=== PATIENT | female | born 1945 | race American Indian/Alaskan Native ===

== ENCOUNTER 2020-02-20 13:36 | Observation (INO) | payer MEDICARE ==
--- NOTE | 2020-02-20 14:43 | Event Note ---
ED Screening Note Date of service: 02/20/20 Time: 14:42 ED Screening Note: 74-year-old -[place] female presents with 1 day history of acute abdominal pain with coffee-ground emesis. Has a history of hypertension. This initial assessment/diagnostic orders/clinical plan/treatment(s) is/are subject to change based on patients health status, clinical progression and re- assessment by fellow clinical providers in the ED. Further treatment and workup at subsequent clinical providers discretion. Patient/guardian urged not to elope from the ED as their condition may be serious if not clinically assessed and managed. Initial orders include: This
[2020-02-20 15:53] LABS: Hematocrit 38.9 % (30.3-42.9); Hemoglobin 12.5 gm/dl (10.1-14.3); Lymphocytes # (Auto) 0.4 K/mm3 (1.2-5.4); Lymphocytes % (Auto) 8.6 % (13.4-35.0); Mean Corpuscular HGB Conc 32 % (30-34); Mean Corpuscular Volume 96 fl (79-97); Monocytes # (Auto) 0.1 K/mm3 (0.0-0.8); Monocytes % (Auto) 1.8 % (0.0-7.3); Platelet Count 359 K/mm3 (140-440); Red Blood Count 4.06 M/mm3 (3.65-5.03); Red Cell Distribution Width 13.5 % (13.2-15.2)
[2020-02-20 16:20] LABS: Alanine Aminotransferase 20 units/L (7-56); Albumin 4.4 g/dL (3.9-5); BUN/Creatinine Ratio 36; Blood Urea Nitrogen 18 mg/dL (7-17); Calcium 9.8 mg/dL (8.4-10.2); Hemolysis Index 2
[2020-02-20] MEDS ORDERED: PANTOPRAZOLE 40 MG INJ IV ONE (16:40)
[2020-02-20] MEDS ORDERED: SODIUM CHLORIDE 0.9% 1000 ML 1,000 ML IV ONE (16:41)
[2020-02-20] MEDS ORDERED: ONDANSETRON 4 MG/2 ML INJ IV ONE (16:41)
--- NOTE | 2020-02-20 16:48 | Emergency Department Report ---
HPI - General Chief Complaint: Abdominal Pain Time Seen by Provider: 02/20/20 14:41 - HPI HPI: This is a 74-year-old female who presents to the emergency department with a complaint of some midline abdominal burning pain that the patient equates with acid reflux that will sometimes radiate up towards her chest. Since last night the patient has been having nausea and vomiting and it has gotten to the point where the patient is unable to keep down any liquids or solids or take her medications. There is also been a few episodes of vomiting in which the patient says that she brought up some "xlsaoi-dnpsya-kpqgiwn stuff." Since this morning the patient is also been having some nonspecific dizziness/lightheadedness to where she feels slightly off balance. She denies any headache, vision change, chest pain, shortness of breath, numbness or paresthesias, or any other neurological deficits. She has a past medical history of hypertension, non-ins ulin-dependent diabetes. She denies any tobacco or illicit drug use. She follows with Dr. Katie Frausto. No recent travel or sick contacts at home. ED Past Medical Hx - Past Medical History Previous Medical History?: Yes Hx Hypertension: Yes Hx Diabetes: Yes - Surgical History Past Surgical History?: Yes Additional Surgical History: POLYPS - Social History Smoking Status: Never Smoker Substance Use Type: None - Medications Home Medications: Home Medications Medication Instructions Recorded Confirmed Last Taken Type AtorvaSTATin 1 tab PO HS 02/20/20 02/20/20 Unknown History Olmesartan/Hydrochlorothiazide 1 each PO DAILY 02/20/20 02/20/20 Unknown History [Olmesartan-Hctz 20-12.5 mg Tab] Verapamil ER [Calan Sr] 240 mg PO DAILY 02/20/20 02/20/20 Unknown History metFORMIN [Glucophage] 500 mg PO BID 02/20/20 02/20/20 Unknown History ED Review of Systems ROS: Stated complaint: DIZZY,VOMITING Other details as noted in HPI Comment: All other systems reviewed and negative Constitutional: denies: chills, fever Eyes: denies: eye pain, vision change ENT: denies: ear pain, throat pain Respiratory: denies: cough, shortness of breath Cardiovascular: denies: palpitations, edema Gastrointestinal: abdominal pain, nausea, vomiting Genitourinary: denies: dysuria, discharge Musculoskeletal: denies: back pain, arthralgia Skin: denies: rash, lesions Neurological: other (dizziness/lightheaded). denies: headache Physical Exam - Physical Exam Vital Signs: Vital Signs 02/20/20 14:40 Temperature 98.4 F Pulse Rate 72 Respiratory 18 Rate Blood Pressure 152/76 O2 Sat by Pulse 100 Oximetry Physical Exam: GENERAL: The patient is well-developed well-nourished. HENT: Normocephalic. Atraumatic. Patient has moist mucous membranes. EYES: Extraocular motions are intact. Pupils equal reactive to light bilaterally. No nystagmus. NECK: Supple. Trachea is midline. CHEST/LUNGS: Clear to auscultation. There is no respiratory distress noted. HEART/CARDIOVASCULAR: Regular. There is no tachycardia. ABDOMEN: Abdomen is soft, nontender. Patient has normal bowel sounds. There is no abdominal distention. SKIN: Skin is warm and dry. NEURO: The patient is awake, alert, and oriented. The patient is cooperative. The patient has no focal neurologic deficits. Normal speech. Cranial nerves II through XII grossly intact. MUSCULOSKELETAL: There is no tenderness or deformity. There is no limitation range of motion. There is no evidence of acute injury. ED Course Vital Signs 02/20/20 14:40 Temperature 98.4 F Pulse Rate 72 Respiratory 18 Rate Blood Pressure 152/76 O2 Sat by Pulse 100 Oximetry ED Medical Decision Making - Lab Data Result diagrams: 02/20/20 14:45 02/20/20 14:45 - EKG Data -: EKG Interpreted by Me EKG shows normal: sinus rhythm, axis, intervals, QRS complexes, ST-T waves Rate: normal (59 bpm) - EKG Data When compared to previous EKG there are: previous EKG unavailable Interpretation: normal EKG - Radiology Data Radiology results: report reviewed, image reviewed interpreted by me: Chest x-ray does not show any acute process. There are no pleural effusions, obvious pneumonia and there is no pneumothorax. Abdominal x-ray shows nonspecific nonobstructive bowel gas. CT HEAD WITHOUT CONTRAST INDICATION / CLINICAL INFORMATION: Pt complains of dizziness x 1 day. TECHNIQUE: All CT scans at this location are performed using CT dose reduction for ALARA by means of automated exposure control. COMPARISON: None available. FINDINGS: HEMORRHAGE: None. EXTRA-AXIAL SPACES: Normal in size and morphology for the patient's age. VENTRICULAR SYSTEM: Normal in size and morphology for the patient's age. CEREBRAL PARENCHYMA: No significant abnormality. No acute territorial infarct. MIDLINE SHIFT OR HERNIATION: None. CEREBELLUM / BRAINSTEM: No significant abnormality. ORBITS: Normal as visualized. SOFT TISSUES of HEAD: No significant abnormality. CALVARIUM: In cidental note is made of hyperostosis frontalis interna PARANASAL SINUSES / MASTOID AIR CELLS: Normal as visualized. ADDITIONAL FINDINGS: None. IMPRESSION: 1. No acute intracranial abnormality. - Medical Decision Making This patient presented with a complaint of some nausea and vomiting, and burning abdominal pain that started last night and worsened this morning that eventually caused some coffee-ground emesis. Also, since this morning, the patient says that she has been feeling dizzy/lightheaded and unsteady while walking. On examination she does not have any obvious focal, motor or sensory deficits and her cranial nerves are intact. Heart and lung sounds are normal to auscultation. An EKG was done that does not have any morphology consistent with ST elevation [place] or any significant dysrhythmia. Her labs have been unremarkable including CBC, metabolic panel, troponin but she does have a significant urinary tract infection. Patient received IV fluid resuscitation, Zofran, Protonix, and then a GI cocktail. She was given a dose of Macrobid for the urinary tract infection. She had an abdominal and chest x-ray that did not show any acute processes. Because of her complaint of dizziness/lightheadedness, she had a CT scan of the head without contrast that did not show any bleed, shift, mass, ischemia, or any other acute process. I attempted to ambulate this patient around the emergency department but the patient once again feels dizzy and appears unsteady. As this is a recent change for this patient, she will be admitted to the hospital for further evaluation and treatment and has been accepted for admission by the hospitalist, Dr. Norman. Critical Care Time: No Critical care attestation.: If time is entered above; I have spent that time in minutes in the direct care of this critically ill patient, excluding procedure time. ED Disposition Clinical Impression: Unsteady gait, Dizziness Nausea & vomiting Qualifiers: Vomiting type: unspecified Vomiting Intractability: unspecified Qualified Code(s): R11.2 - Nausea with vomiting, unspecified UTI (urinary tract infection) Qualifiers: Urinary tract infection type: acute cystitis Hematuria presence: without hematuria Qualified Code(s): N30.00 - Acute cystitis without hematuria Disposition: OP ADMIT IP TO THIS HOSP Is pt being admited?: Yes Condition: Fair Time of Disposition: 00:11
--- NOTE | 2020-02-20 17:26 | XRay Report ---
ABDOMEN 4 VIEW(S) INDICATION: Unspecified abdominal pain. COMPARISON: None available. FINDINGS: Bowel gas pattern: No significant abnormality. Free air: None seen. Stones: None seen. Chest: No acute findings. Additional Findings: Degenerative changes are seen throughout the spine. No additional significant fi ndings. IMPRESSION: 1. No acute findings. Signer Name: Kiran Nava MD Signed: 02/20/2020 5:22 PM Workstation Name: [id number]
[2020-02-20] MEDS ORDERED: ALUM-MAG HYDROXIDE-SIMETHICONE 200-200-20MG/5ML ORAL LIQD 30 ML PO ONE (17:50)
[2020-02-20] MEDS ORDERED: LIDOCAINE VISCOUS 2% 15 ML ORAL LIQD PO ONE (17:50)
[2020-02-20 19:58] LABS: Bacteria,Urine 1+ /HPF (Negative); Bilirubin,Urine NEG (Negative); Blood,Urine NEG (Negative); Color,Urine Yellow (Yellow); Mucus,Urine FEW /HPF; Protein,Urine <15 mg/dL mg/dL (Negative); Urobilinogen,Urine < 2.0 mg/dL (<2.0)
[2020-02-20] MEDS ORDERED: NITROFURANTOIN MONOHYD/M-CRYST 100 MG CAP PO ONE (21:06)
--- NOTE | 2020-02-20 23:34 | Cat Scan Report ---
CT HEAD WITHOUT CONTRAST INDICATION / CLINICAL INFORMATION: Pt complains of dizziness x 1 day. TECHNIQUE: All CT scans at this location are performed using CT dose reduction for ALARA by means of automated e xposure control. COMPARISON: None available. FINDINGS: HEMORRHAGE: None. EXTRA-AXIAL SPACES: Normal in size and morphology for the patient's age. VENTRICULAR SYSTEM: Normal in size and morphology for the patient's age. CEREBRAL PARENCHYMA: No significant abnormality. No acute territorial infarct. MIDLINE SHIFT OR HERNIATION: None. CEREBELLUM / BRAINSTEM: No significant abnormality. ORBITS: Normal as visualized. SOFT TISSUES of HEAD: No significant abnormality. CALVARIUM: Incidental note is made of hyperostosis frontalis interna PARANASAL SINUSES / MASTOID AIR CELLS: Normal as visualized. ADDITIONAL FINDINGS: None. IMPRESSION: 1. No acute intracranial abnormality. Signer Name: Dae Martins MD Signed: 02/20/2020 11:30 PM Workstation Name: [id number]
[2020-02-21] MEDS ORDERED: ONDANSETRON 4 MG/2 ML INJ IV PRN ×2 (00:38)
[2020-02-21] MEDS ORDERED: MAGNESIUM HYDROXIDE (MOM) ORAL LIQD UDC PO PRN ×2 (00:38)
[2020-02-21] MEDS ORDERED: METOCLOPRAMIDE 10 MG TAB PO PRN (00:38)
[2020-02-21] MEDS ORDERED: DEXTROSE 50% IN WATER (25GM) 50 ML SYRINGE IV PRN (00:38)
[2020-02-21] MEDS ORDERED: PROMETHAZINE 25 MG RECT SUPP PR PRN (00:38)
[2020-02-21] MEDS ORDERED: ACETAMINOPHEN 325 MG TAB PO PRN ×2 (00:38)
--- NOTE | 2020-02-21 00:50 | History and Physical Report ---
History of Present Illness Date of examination: 02/21/20 Date of admission: 02/21/20 00:18 Chief complaint: Nausea and vomiting History of present illness: 84-year-old female who presents to the emergency room today with nausea and vomiting with associated abdominal pain. Abdominal pain is said to be in the epigastric region and burning in nature. She also indicates that she had what looked like coffee ground emesis. This has been ongoing since last night how ever earlier this morning she was feeling unsteady on her legs and feeling dizzy. She denies any fall. She denies any loss of consciousness. Patient denies any fever or chills, no chest pain or shortness of breath, denies any headache or blurry vision. She denies any sick contacts and no recent travel. She denies contact with anyone with COVID-19. Work-up in the emergency room did not reveal any significant findings on the CT scan of the head however patient had a urinary tract infection on the urinalysis. She had a dose of Macrobid in the emergency room. Past History Past Medical History: diabetes, hypertension, hyperlipidemia Past Surgical History: No surgical history Social history: no significant social history Family history: no significant family history Medications and Allergies Allergies Allergy/AdvReac Type Severity Reaction Status Date / Time No Known Allergies Allergy Unverified 02/13/14 08:33 Home Medications Medication Instructions Recorded Confirmed Last Taken Type AtorvaSTATin 1 tab PO HS 02/20/20 02/20/20 Unknown History Olmesartan/Hydrochlorothiazide 1 each PO DAILY 02/20/20 02/20/20 Unknown History [Olmesartan-Hctz 20-12.5 mg Tab] Verapamil ER [Calan Sr] 240 mg PO DAILY 02/20/20 02/20/20 Unknown History metFORMIN [Glucophage] 500 mg PO BID 02/20/20 02/20/20 Unknown History Review of Systems Constitutional: no fever, no chills Ears, nose, mouth and throat: no nasal congestion, no sore throat Cardiovascular: no chest pain, no palpitations, no syncope Respiratory: no cough, no shortness of breath Gastrointestinal: nausea, vomiting, coffee ground emesis, no abdominal pain, no diarrhea, no BRBPR Genitourinary Female: no flank pain, no dysuria, no hematuria Musculoskeletal: no neck pain, no low back pain Integumentary: no rash, no pruritis Neurological: gait dysfunction, no headaches, no confusion Psychiatric: no anxiety, no depression Exam - Constitutional Vitals: Temp Pulse Resp BP Pulse Ox 98.3 F 72 18 132/65 97 02/20/20 21:02 02/20/20 21:02 02/20/20 21:02 02/20/20 22:00 02/20/20 22:00 General appearance: Present: no acute distress, well-nourished - EENT Eyes: Present: PERRL, EOM intact. Absent: scleral icterus ENT: hearing intact, clear oral mucosa, dentition normal - Neck Neck: Present: supple, normal ROM - Respiratory Respiratory effort: normal Respiratory: bilateral: CTA - Cardiovascular Rhythm: regular Heart Sounds: Present: S1 & S2. Absent: gallop, systolic murmur, diastolic murmur, rub - Extremities Extremities: no ischemia, pulses intact, pulses symmetrical, No edema, Full ROM Peripheral Pulses: within normal limits - Abdominal General gastrointestinal: Present: soft, non-tender, non-distended, normal bowel sounds - Integumentary Integumentary: Present: clear, warm, dry. Absent: jaundice, rash - Musculoskeletal Musculoskeletal: strength equal bilaterally - Psychiatric Psychiatric: appropriate mood/affect, intact judgment & insight, memory intact, cooperative - Neurologic Neurologic: CNII-XII intact, no focal deficits, moves all extremities HEART Score - HEART Score Troponin: Troponin T < 0.010 ng/mL (0.00-0.029) 02/20/20 14:45 Results - Labs CBC & Chem 7: 02/20/20 14:45 02/20/20 14:45 Labs: Abnormal lab results 02/20/20 02/20/20 02/20/20 Range/Units 14:45 14:45 19:00 Lymph % (Auto) 8.6 L (13.4-35.0) % Lymph # 0.4 L (1.2-5.4) K/mm3 Seg Neutrophils % 88.6 H (40.0-70.0) % Sodium 136 L (137-145) mmol/L Chloride 96.3 L (98-107) mmol/L Carbon Dioxide 21 L (22-30) mmol/L BUN 18 H (7-17) mg/dL Creatinine 0.5 L (0.7-1.2) mg/dL Glucose 246 H (65-100) mg/dL Lipase 10 L (13-60) units/L Urine WBC (Auto) 105.0 H (0.0-6.0) /HPF Assessment and Plan - Patient Problems (1) Nausea & vomiting Current Visit: Yes Status: Acute Qualifiers: Vomiting type: unspecified Vomiting Intractability: unspecified Qualified Code(s): R11.2 - Nausea with vomiting, unspecified Plan to address problem: Patient has been placed on IV Zofran as needed. Patient also has associated gastritis/GERD. She has been placed on IV Protonix. (2) UTI (urinary tract infection) Current Visit: Yes Status: Acute Qualifiers: Urinary tract infection type: acute cystitis Hematuria presence: without hematuria Qualified Code(s): N30.00 - Acute cystitis without hematuria Plan to address problem: Patient placed on empiric IV antibiotics. We await urine culture result. (3) Unsteady gait Current Visit: Yes Status: Acute Plan to address problem: Etiology is unclear however patient will be scheduled for MRI of the brain and also carotid Doppler. We will request neurology evaluation and recommendation. (4) Diabetes mellitus Current Visit: Yes Status: Acute Plan to address problem: We will monitor Accu-Cheks. (5) DVT prophylaxis Current Visit: Yes Status: Acute Plan to address problem: Patient placed on sequential compression device. (6) Full code status Current Visit: Yes Status: Acute
[2020-02-21] MEDS: SODIUM CHLORIDE 0.9% 1000 ML 1,000 ML IV SCH ×2 (01:20→18:11)
[2020-02-21] MEDS ORDERED: SODIUM CHLORIDE 0.9% 1000 ML 1,000 ML ONE (01:22)
[2020-02-21 05:38] LABS: Free T4 (Free Thyroxine) 0.89 ng/dL (0.76-1.46)
[2020-02-21] MEDS: INSULIN LISPRO 100 UNIT/ML SUB-Q SCH ×4 (07:45→22:35)
[2020-02-21] MEDS: hydroCHLOROthiazide 12.5 MG CAP PO SCH (09:11)
[2020-02-21] MEDS: LOSARTAN 50 MG TAB PO SCH (09:11)
[2020-02-21] MEDS: ASPIRIN 325 MG TAB PO SCH (09:11)
[2020-02-21] MEDS: VERAPAMIL ER 240 MG TAB PO SCH (09:11)
[2020-02-21] MEDS: cefTRIAXone/NS 1 GM/50 ML 1 GM/50 ML BAG IV SCH (09:11)
[2020-02-21] MEDS: PANTOPRAZOLE 40 MG INJ IV SCH ×2 (09:12→22:37)
[2020-02-21] MEDS ORDERED: NON-FORMULARY EACH (Olmesartan/Hydrochlorothiazide [Olmesartan-Hctz 20-12.5 Mg Tab] 1 EACH PO SCH (10:00)
--- NOTE | 2020-02-21 12:41 | Vascular Lab Report ---
BILATERAL CAROTID DOPPLER ULTRASOUND INDICATION : stroke TECHNIQUE: Grayscale and color Doppler imaging performed through the neck. COMPARISON: None FINDINGS: Right: There is minimal partially calcified plaque in the carotid bulb. Peak systolic velocity in t he CCA is 93 cm/s with end-diastolic velocity of 21 cm/s. Peak systolic velocity in the proximal ICA is 81 cm/s with end-diastolic velocity of 32 cm/s. ICA to CCA ratio is less than 2. There is antegrad e flow in the ECA and the vertebral artery. Left: There is no significant atherosclerotic disease. Peak systolic velocity in the CCA is 80 cm/s w ith end-diastolic velocity of 18 cm/s. Peak systolic velocity in the proximal ICA is 73 cm/s with end -diastolic velocity of 16 cm/s. ICA to CCA ratio is less than 2. There is antegrade flow in the ECA and the vertebral artery. IMPRESSION: No hemodynamically significant stenosis by NASCET criteria. Doppler velocities indicate l ess than 50% luminal narrowing bilaterally. Signer Name: Kishore Costello Jr, MD Signed: 02/21/2020 12:37 PM Workstation Name: [id number]
--- NOTE | 2020-02-21 14:15 | Consultation ---
History of Present Illness Consult date: 02/21/20 Reason for Consult: Unsteady gait Chief complaint: Unsteady gait History of present illness: Patient is a 74 y/o woman w/ a h/o HTN, DM, HLD. She had not been feeling well at home over the past 2 days, as she was experiencing nausea, vomiting, abdominal pain, and coffee-ground emesis. Yesterday, when trying to walk, she noted that she felt somewhat unsteady, dizzy, and lightheaded. She came to [facility] for further evaluation, and was found to have a UTI. Patient states that her gait has returned to normal today, and she feels better overall. Past History Past Medical History: diabetes, hypertension, hyperlipidemia Past Surgical History: No surgical history Social history: no significant social history Family history: no significant family history Medications and Allergies Allergies Allergy/AdvReac Type Severity Reaction Status Date / Time No Known Allergies Allergy Unverified 02/13/14 08:33 Home Medications Medication Instructions Recorded Confirmed Last Taken Type AtorvaSTATin 1 tab PO HS 02/20/20 02/20/20 Unknown History Olmesartan/Hydrochlorothiazide 1 each PO DAILY 02/20/20 02/20/20 Unknown History [Olmesartan-Hctz 20-12.5 mg Tab] Verapamil ER [Calan Sr] 240 mg PO DAILY 02/20/20 02/20/20 Unknown History metFORMIN [Glucophage] 500 mg PO BID 02/20/20 02/20/20 Unknown History Active Meds: Active Medications Acetaminophen (Tylenol) 650 mg PO Q4H PRN PRN Reason: Pain, Mild (1-3) Aspirin (Aspirin) 325 mg PO QDAY [facility] Last Admin: 02/21/20 09:11 Dose: 325 mg Documented by: Atorvastatin Calcium (Atorvastatin) 10 mg PO [facility] Bisacodyl (Dulcolax) 10 mg [place] QDAY PRN PRN Reason: Constipation Dextrose (D50w (25gm) Syringe) 0 ml IV Q30MIN PRN; Protocol PRN Reason: Hypoglycemia Hydrochlorothiazide (Hctz) 12.5 mg PO QDAY [facility] Last Admin: 02/21/20 09:11 Dose: 12.5 mg Documented by: Sodium Chloride (Nacl 0.9% 1000 Ml) 1,000 mls @ 75 mls/hr IV DIRECT [facility] Last Admin: 02/21/20 01:20 Dose: 75 mls/hr Documented by: Ceftriaxone Sodium (Rocephin/Ns 1 Gm/50 Ml) 1 gm in 50 mls @ 100 mls/hr IV Q24HR [facility]; Protocol Last Admin: 02/21/20 09:11 Dose: 100 mls/hr Documented by: Insulin Human Lispro (Humalog) 0 unit SUB-Q ACHS [facility]; Protocol Last Admin: 02/21/20 12:30 Dose: Not Given Documented by: Losartan Potassium (Cozaar) 50 mg PO QDAY [facility] Last Admin: 02/21/20 09:11 Dose: 50 mg Documented by: Magnesium Hydroxide (Milk Of Magnesia) 30 ml PO Q4H PRN PRN Reason: Constipation Metoclopramide HCl (Reglan) 10 mg PO Q6H PRN PRN Reason: Nausea And Vomiting Ondansetron HCl (Zofran) 4 mg IV Q8H PRN PRN Reason: Nausea And Vomiting Last Admin: 02/21/20 13:17 Dose: 4 mg Documented by: Pantoprazole Sodium (Protonix) 40 mg IV BID [facility] Last Admin: 02/21/20 09:12 Dose: 40 mg Documented by: Promethazine HCl (Phenergan) 25 mg [place] Q6H PRN PRN Reason: Nausea And Vomiting Sodium Chloride (Sodium Chloride Flush Syringe 10 Ml) 10 ml IV BID [facility] Last Admin: 02/21/20 09:12 Dose: 10 ml Documented by: Sodium Chloride (Sodium Chloride Flush Syringe 10 Ml) 10 ml IV PRN PRN PRN Reason: LINE FLUSH Verapamil HCl (Calan Sr) 240 mg PO DAILY [facility] Last Admin: 02/21/20 09:11 Dose: 240 mg Documented by: Review of Systems All systems: negative Gastrointestinal: nausea, vomiting (coffee ground emesis) Neurological: other (unsteady gait- now resolved, lightheadedness, dizziness) Physical Examination - Vital Signs Vital Signs: Vital Signs Temp Pulse Resp BP Pulse Ox 98.4 F 72 18 152/76 100 02/20/20 14:40 02/20/20 14:40 02/20/20 14:40 02/20/20 14:40 02/20/20 14:40 - Physical Exam Narrative exam: Patient is alert, awake, oriented x4, follows complex commands. No dysarthria or aphasia noted. PERRL, EOMI, VFF, tongue midline, bilaterally intact to LT, no facial weakness noted. 5/5 strength in all extremities. Bilaterally intact light touch. Bilaterally intact to FTN and HTS. - Constitutional General appearance: comfortable Results - Laboratory Findings CBC and BMP: 02/20/20 14:45 02/20/20 14:45 Abnormal Lab Findings: Abnormal Labs 02/20/20 02/20/20 02/20/20 14:45 14:45 19:00 Lymph % (Auto) 8.6 L Lymph # 0.4 L Seg Neutrophils % 88.6 H Sodium 136 L Chloride 96.3 L Carbon Dioxide 21 L BUN 18 H Creatinine 0.5 L Glucose 246 H POC Glucose Lipase 10 L Urine WBC (Auto) 105.0 H 02/21/20 02/21/20 07:52 11:56 Lymph % (Auto) Lymph # Seg Neutrophils % Sodium Chloride Carbon Dioxide BUN Creatinine Glucose POC Glucose 144 H 152 H Lipase Urine WBC (Auto) Assessment and Plan Patient is a 74 y/o woman w/ a h/o HTN, DM, HLD, who p/w nausea/vomiting, coffee ground emesis, dizziness/lightheadedness, and unsteady gait. Her symptoms have since improved. According to the patient's clinical findings, it is likely that her symptoms yesterday of unsteady gait, dizziness/lightheadedness were secondary to UTI, as they have already resolved now that treatment for UTI has been initiated. Plan: 1. Unsteady gait: - Likely secondary to UTI. - Has now resolved. Continue to treat UTI per primary team - MRI brain: No acute abnormalities. Awaiting final report from radiology. - CUS: no significant stenosis. - Echo: EF 55-60%, LA normal size, bubble study negative. - CT head: no acute abnormalities. - As patient's symptoms have resolved, no further neurologic investigations indicated at this time. - Recommend PT eval for gait stability. - Will sign off, as neurologic investigations are complete, and treatment plan is in place. Please call with any questions. Thank you for allowing me to take part in the care of this patient. Olvin Ram MD Neurology This clinical encounter was provided via live telemedicine platform. Consultative service was provided for neurology to support local providers. The Acute Teleneurology team should be contacted with any neurologic worsening or clinical changes, new test results, or new patient history that is reported to or discovered by the local team following completion of the teleneurology consultation, specifically that which has the potential to impact the consultative recommendations. Patient/Family was informed the Neurology Consult would happen via TeleHealth consult by way of interactive audio and video telecommunications and consented to receiving care in this manner. Due to the potential for life-threatening deterioration due to underlying neurologic illness, and limited resources available for patient care, telemedicine was used as means of patient care. Telemedicine consultation is limited in the extent of physical exam that can be virtually provided. Time spent evaluating patient includes time for face to face visit via telemedicine, review of medical records, imaging studies and discussion of findings with providers, the patient and/or family.
--- NOTE | 2020-02-21 20:18 | Progress Note ---
Assessment and Plan atient Problems (1) Nausea & vomiting Current Visit: Yes Status: Acute Qualifiers: Vomiting type: unspecified Vomiting Intractability: unspecified Qualified Code(s): R11.2 - Nausea with vomiting, unspecified Plan to address problem: Patient has been placed on IV Zofran as needed. Patient also has associated gastritis/GERD. She has been placed on IV Protonix. (2) UTI (urinary tract infection) Current Visit: Yes Status: Acute Qualifiers: Urinary tract infection type: acute cystitis Hematuria presence: without hematuria Qualified Code(s): N30.00 - Acute cystitis without hematuria Plan to address problem: Patient placed on empiric IV antibiotics. We await urine culture result. (3) Unsteady gait Current Visit: Yes Status: Acute Plan to address problem: Etiology is unclear however patient will be scheduled for MRI of the brain and also carotid Doppler. We will request neurology evaluation and recommendation. (4) Diabetes mellitus Current Visit: Yes Status: Acute Plan to address problem: We will monitor Accu-Cheks. (5) DVT prophylaxis Current Visit: Yes Status: Acute Plan to address problem: Patient placed on sequential compression device. (6) Full code status Current Visit: Yes Status: Acute Subjective Date of service: 02/21/20 Objective - Constitutional Vitals: Vital Signs - 12hr 02/21/20 02/21/20 02/21/20 11:41 13:00 15:33 Temperature 98.3 F 98.0 F Pulse Rate 91 H 91 H 84 Respiratory 18 18 Rate Blood Pressure 141/75 123/71 O2 Sat by Pulse 97 97 Oximetry 02/21/20 19:22 Temperature 97.7 F Pulse Rate 54 L Respiratory 18 Rate Blood Pressure 118/60 O2 Sat by Pulse 98 Oximetry - Labs CBC & Chem 7: 02/22/20 03:55 02/22/20 03:55 Labs: Abnormal lab results 02/21/20 02/21/20 02/21/20 Range/Units 07:52 11:56 16:29 POC Glucose 144 H 152 H 135 H (70-105) HEART Score - HEART Score Troponin: Troponin T < 0.010 ng/mL (0.00-0.029) 02/20/20 14:45
[2020-02-22 04:52] LABS: Basophils % (Auto) 0.5 % (0.0-1.8); Eosinophils # (Auto) 0.1 K/mm3 (0.0-0.4); Eosinophils % (Auto) 1.5 % (0.0-4.3); Hemoglobin 10.9 gm/dl (10.1-14.3); Lymphocytes # (Auto) 1.9 K/mm3 (1.2-5.4); Lymphocytes % (Auto) 45.6 % (13.4-35.0); Mean Corpuscular HGB Conc 33 % (30-34); Mean Corpuscular Volume 97 fl (79-97); Monocytes # (Auto) 0.3 K/mm3 (0.0-0.8); Monocytes % (Auto) 6.5 % (0.0-7.3); Platelet Count 294 K/mm3 (140-440); Red Blood Count 3.41 M/mm3 (3.65-5.03); Red Cell Distribution Width 13.7 % (13.2-15.2)
[2020-02-22 04:57] LABS: BUN/Creatinine Ratio 26; Blood Urea Nitrogen 21 mg/dL (7-17); Calcium 8.8 mg/dL (8.4-10.2); Hemolysis Index 4; LDL Cholesterol,Direct 69 mg/dL (50-130)
[2020-02-22 05:02] LABS: INR 1.08 (0.87-1.13)
[2020-02-22 05:09] LABS: Chol/HDL Ratio 2.41 %; HDL Cholesterol 51 mg/dL (40-59)
[2020-02-22] MEDS: SODIUM CHLORIDE 0.9% 1000 ML 1,000 ML IV SCH (06:47)
[2020-02-22] MEDS: INSULIN LISPRO 100 UNIT/ML SUB-Q SCH ×2 (07:57→12:50)
--- NOTE | 2020-02-22 08:17 | Magnetic Resonance Report ---
MR brain wo con INDICATION / CLINICAL INFORMATION: 74 years Female; MAIN. TECHNIQUE: Multiplanar, multisequence MR images of the brain were obtained. COMPARISON: None available. FINDINGS: BRAIN / INTRACRANIAL CONTENTS: On the FLAIR sequences, there are scattered a hypertensive foci involv ing the cerebral white matter most consistent with microvascular angiopathy. The diffusion imaging re veals no evidence of acute infarction. There is mild cerebral atrophy. The ventricular system is correspondingly appropriate in size and con figuration. No extra-axial fluid collections or significant mass effect is identified. 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 CRANIOCERVICAL JUNCTION: No significant abnormality. VASCULAR FLOW-VOIDS: No significant abnormality. ORBITS: No significant abnormality of visualized orbits. SINUSES / MASTOIDS: No significant abnormality in the visualized paranasal sinuses or mastoid air sid ls. ADDITIONAL FINDINGS: None. IMPRESSION: 1. There is mild microvascular angiopathy without evidence of acute infarction. Signer Name: Willie Thorpe MD Signed: 02/22/2020 8:13 AM Workstation Name: [id number]
[2020-02-22 10:20] VITALS: BP 115/70
[2020-02-22] MEDS: cefTRIAXone/NS 1 GM/50 ML 1 GM/50 ML BAG IV SCH (10:27)
[2020-02-22] MEDS: hydroCHLOROthiazide 12.5 MG CAP PO SCH (10:27)
[2020-02-22] MEDS: PANTOPRAZOLE 40 MG INJ IV SCH (10:27)
[2020-02-22] MEDS: LOSARTAN 50 MG TAB PO SCH (10:27)
[2020-02-22] MEDS: ASPIRIN 325 MG TAB PO SCH (10:27)
[2020-02-22] MEDS: VERAPAMIL ER 240 MG TAB PO SCH (10:27)
--- NOTE | 2020-02-22 12:30 | Event Note ---
Date: 02/21/20 Patient seen and examined States nausea vomiting and lightheadedness much improved Getting antibiotics for UTI MRI of the brain official report is pending Neuro eval pending We will continue to monitor Possible DC home with home health if MRI of the brain is negative and cleared by neuro
--- NOTE | 2020-02-22 14:50 | Discharge Summary ---
Providers - Providers Date of Admission: 02/21/20 00:18 Date of discharge: 02/22/20 Attending physician: MALICK KRAMER 02/21/20 00:38 Consult to Dietitian/Nutrition [CONS] Routine Physician Instructions: Reason For Exam: Reason for Consult: Nutrition Recommendations Reason for Consult: Diet education Occupational Therapy Evaluate and Treat [CONS] Routine Comment: Reason For Exam: Neuro deficits Physical Therapy Evaluation and Treat [CONS] Routine Comment: Reason For Exam: Neuro deficits 02/21/20 06:28 Consult to Physician [CONS] Routine Comment: Consulting Provider: HERNAN WHALEN Physician Instructions: Reason For Exam: Unsteady gait Primary care physician: SCALE INSTALLER Hospitalization Condition: Fair Hospital course: 84-year-old female who presented to the emergency room with nausea and vomiting with associated abdominal pain. Work-up in the emergency room did not reveal any significant findings on the CT scan of the head however patient had a urinary tract infection on the urinalysis. MRI brain showed no abnormalities, carotid Doppler showed no significant stenosis, 2D echo showed EF 55 to 60%. Patient was further evaluated by neurology and recommended medical management for UTI. Patient was placed on IV fluid and antibiotic. His symptom improved. Patient was further evaluated by physical therapy and recommended home health PT. Patient was then discharged home in stable condition with outpatient follow-up. Radiological data: Chest/abdomen x-ray Head CT, brain MRI Carotid Doppler 2D echocardiogram Discharge diagnosis: Nausea and vomiting, likely due to UTI and underlying infection UTI without sepsis Mild hyponatremia, improved with IV fluid Unsteady gait, likely due to UTI Diabetes mellitus type 2 Hypertension Hyperlipidemia Physical exam: General appearance: Present: no acute distress, well-nourished - EENT Eyes: Present: PERRL, EOM intact. Absent: scleral icterus ENT: hearing intact, clear oral mucosa, dentition normal - Neck Neck: Present: supple, normal ROM - Respiratory Respiratory effort: normal Respiratory: bilateral: CTA - Cardiovascular Rhythm: regular Heart Sounds: Present: S1 & S2. Absent: gallop, systolic murmur, diastolic murmur, rub - Extremities Extremities: no ischemia, pulses intact, pulses symmetrical, No edema, Full ROM Peripheral Pulses: within normal limits - Abdominal General gastrointestinal: Present: soft, non-tender, non-distended, normal bowel sounds - Integumentary Integumentary: Present: clear, warm, dry. Absent: jaundice, rash - Musculoskeletal Musculoskeletal: strength equal bilaterally - Psychiatric Psychiatric: appropriate mood/affect, intact judgment & insight, memory intact, cooperative - Neurologic Neurologic: CNII-XII intact, no focal deficits, moves all extremities Disposition: DC-01 TO HOME OR SELFCARE Time spent for discharge: 34 minutes Core Measure Documentation - Palliative Care Palliative Care/ Comfort Measures: Not Applicable - Core Measures Any of the following diagnoses?: none Exam - Constitutional Vitals: Temp Pulse Resp BP Pulse Ox 98.0 F 65 18 115/70 99 02/22/20 07:23 02/22/20 11:01 02/22/20 07:23 02/22/20 07:23 02/22/20 03:51 Plan Activity: advance as tolerated Weight Bearing Status: Weight Bear as Tolerated Diet: low fat, low salt, diabetic Follow up with: PRIMARY CARE,MD [Primary Care Provider] - 7 Days Prescriptions: levoFLOXacin [Levaquin TAB] 500 mg PO QDAY #3 tablet
== END 2020-02-22 16:37 | disposition home or self-care (01) ==
LOC: ED 13:36 → 4A 02-21 00:18
PROVIDERS: ADMIT Internal Medicine Geriatric Medicine; ATTEND Internal Medicine
DX: R11.2 Nausea with vomiting, unspecified (principal); R42 Dizziness and giddiness; N30.00 Acute cystitis without hematuria; R26.9 Unspecified abnormalities of gait and mobility; E11.9 Type 2 diabetes mellitus without complications; I10 Essential (primary) hypertension; E78.5 Hyperlipidemia, unspecified; Z79.84 Long term (current) use of oral hypoglycemic drugs; Z79.899 Other long term (current) drug therapy
CPT/HCPCS: 36415; 70450; 70551; 74022; 80048; 80053; 80061; 81001; 82962; 83690; 84439; 84443; 84484; 85025; 85610; 86850; 86900; 86901; 93005; 93306; 93880; 96361; 96365; 96366; 96374; 96375; 96376; 97110; 97116; 97162; 97165; 99285; A9270; C9113; G0378; J0696; J2405; J7030